=== PATIENT | male | born 1970 | race Caucasian/White ===

== ENCOUNTER 2022-08-26 09:02 | Outpatient (CLI) | payer OTHER, SELFPAY ==
[2022-08-26 18:27] LABS: Alanine Aminotransferase 35 U/L (6-50); Albumin Level 4.1 g/dL (3.5-5.1); Alkaline Phosphatase 48 U/L (38-126); Anion Gap 5 mmol/L (8-16); Aspartate Amino Transferase 35 U/L (17-59); Bilirubin,Total 1.1 mg/dL (0.2-1.3); Blood Urea Nitrogen 11 mg/dL (9-20); Calcium 8.4 mg/dL (8.4-10.2); Carbon Dioxide 29 mmol/L (22-30); Chloride 102 mmol/L (98-107); Cholesterol 175 mg/dL (0-200); Estimated Glomerular Filt Rate > 60; Glucose 83 mg/dL (65-110); HDL Direct 36 mg/dL; Potassium 4.2 mmol/L (3.4-5.0); Sodium 136 mmol/L (137-145); Triglycerides 117 mg/dL (<150)
[2022-08-26 18:38] LABS: LDL Cholesterol Direct 103 mg/dL
[2022-08-26 19:40] LABS: Basophils Absolute Auto 0.1 K/mm3 (0.0-0.1); Basophils Percent Auto 0.9 % (0.2-1.2); Eosinophils Absolute Auto 0.1 K/mm3 (0-0.3); Eosinophils Percent Auto 1.1 % (0-4.4); Hematocrit 49.9 % (42.0-52.0); Hemoglobin 15.1 g/dL (14.0-18.0); Immature Granulocyte Absolute 0.01 K/mm3 (0.00-0.031); Immature Granulocyte Percent A 0.2 % (0-0.5); Immature Platelet Fraction Pct 3.5 % (0.9-11.2); Lymphocytes Absolute Auto 1.75 K/mm3 (0.9-3.2); Lymphocytes Percent Auto 31.1 % (18.3-44.2); Mean Corpuscular HGB Conc 30.3 g/dl (32-36); Mean Corpuscular Hemoglobin 19.5 pg (26-34); Mean Corpuscular Volume 64.5 fl (80-100); Mean Platelet Volume 9.7 fl (7.4-10.4); Monocytes Absolute Auto 0.6 K/mm3 (0.1-0.6); Monocytes Percent Auto 9.9 % (2.6-8.5); Neutrophils Absolute Auto 3.2 K/mm3 (1.3-6.7); Neutrophils Percent Auto 56.8 % (45.5-73.1); Platelet Count Result 230 k/mm3 (150-375); Red Blood Count 7.74 M/mm3 (4.6-6.20); Red Cell Distribution Width 19.8 % (11.5-14.5); White Blood Count 5.6 K/mm3 (4.5-10.0)
[2022-08-26 20:05] LABS: Microcytosis 1+ (NORMAL); Platelet Estimate Adequate (Adequate)
[2022-08-26 20:06] LABS: Ovalocytes 1+ (NORMAL); Schistocytes None Seen (NORMAL); Target Cells 1+ (NORMAL)
== END 2022-08-26 09:03 | disposition home or self-care (01) ==
LOC: ANHGOSHLAB 09:03
PROVIDERS: PCP Family Medicine; Visit Provider Family Medicine
DX: Z13.228 Encounter for screening for other metabolic disorders (principal); Z79.899 Other long term (current) drug therapy; Z13.220 Encounter for screening for lipoid disorders
CPT/HCPCS: 36415; 80053; 80061; 85025; 85055

== ENCOUNTER 2022-09-10 08:00 | Outpatient (CLI) | payer OTHER, SELFPAY ==
[2022-09-10 20:21] LABS: Iron 100 ug/dL (49-181)
[2022-09-10 20:30] LABS: Percent Iron Saturation 29 % (20-50)
== END 2022-09-10 08:01 | disposition home or self-care (01) ==
LOC: ANHGOSHLAB 08:03
PROVIDERS: PCP Family Medicine; Visit Provider Family Medicine
DX: R71.8 Other abnormality of red blood cells (principal)
CPT/HCPCS: 36415; 82728; 83540; 83550

== ENCOUNTER 2023-01-15 02:00 | Day surgery (SDC) | payer BC, SELFPAY ==
[2022-12-31 13:53] VITALS: BMI 31.6
--- NOTE | 2023-01-14 21:03 | PM.HPGS ---
History of Present Illness History of Present Illness Consent: Risks, benefits, and alternatives have been discussed and questions answered. Patient agrees to proceed with procedure. Chief complaint: neoplasm screening Narrative: Jake Bullard is a 52 year old male referred for colon cancer screening Review of Systems Review of Systems: All systems reviewed & are unremarkable except as noted in HPI and below PMFSH Family History Family History Father Hypertension Sibling Hypertension Mother Patient's mother is in good health Other Cerebrovascular accident Diabetes mellitus Social History Social History Smoking status: Never smoker Second hand tobacco smoke exposure: Yes Alcohol intake: current Drinks per week: 2 Alcohol use details: Socially Substance use: never Substance use type: does not use Lack of Transportation: No Lack of Food: Never True Current Housing: I Have Housing Concerned About Future Housing: No Difficulty Paying Gas/Electric Bills: No Difficulty Paying for Meds: No Education: Associate Degree Difficulty w/ Childcare or Family Care: No Meds Home Medications and Allergies Home Medications Medication Instructions Recorded Confirmed Type omeprazole 20 mg capsule,delayed 20 mg PO BID 08/25/22 12/31/22 History release ferrous sulfate 325 mg (65 mg 325 mg PO DAILY #30 tabs 12/07/22 12/31/22 Rx iron) tablet Allergies Allergy/AdvReac Type Severity Reaction Status Date / Time No Known Allergies Allergy Mild Verified 01/15/23 10:53 Exam Const: General: alert Orientation/consciousness: patient oriented x3 Resp: Auscultation: clear to auscultation bilaterally Cardio: Rhythm: regular rhythm GI: GI Palp: Yes Soft to palpation and No Tenderness to palpation present (GI) Neuro: General: patient oriented x3 Assessment and Plan Assessment and plan (1) Colon cancer screening: Code(s): Z12.11 - Encounter for screening for malignant neoplasm of colon Status: Acute Assessment and Plan: Colonoscopy with possible biopsy or polypectomy or cautery or injection of substances.
[2023-01-15 10:54] VITALS: BP 118/77; PULSE 77; RESP 20; TEMP 36.6; O2SAT 99
[2023-01-15] MEDS: LACTATED RINGERS 1,000 ML 150 ML IV CONT (11:05)
--- NOTE | 2023-01-15 11:58 | P.PNAN_ITS ---
Anes - Initial Pre Proc Eval Procedure: Operation Date: 01/15/23 12:30 Proposed Procedures p Screening Colonoscopy - Luis A Cortez MD Date/Time: 01/15/23 11:58 Surgeon: Luis A Cortez MD Pre Op Diagnosis: neoplasm screening Patient Data Age: 52 Gender: M Height: 1.78 m Weight: 93.2 kg Last Vital Signs Temp 98 F 01/15/23 10:54 Pulse 77 01/15/23 10:54 Resp 20 01/15/23 10:54 BP 118/77 01/15/23 10:54 Pulse Ox 99 01/15/23 10:54 O2 Del Method Room Air 01/15/23 10:54 Allergies Allergy/AdvReac Type Severity Reaction Status Date / Time No Known Allergies Allergy Mild Verified 01/15/23 10:53 Home Medications Medication Instructions Recorded Confirmed Type omeprazole 20 mg capsule,delayed 20 mg PO BID 08/25/22 12/31/22 History release ferrous sulfate 325 mg (65 mg 325 mg PO DAILY #30 tabs 12/07/22 12/31/22 Rx iron) tablet Patient hx anesthesia problems: none Family hx anesthesia problems: none Results Review: All pre-operative results and documents have been reviewed as part of the pre- operative evaluation. [facility] Family History Family History Father Hypertension Sibling Hypertension Mother Patient's mother is in good health Other Cerebrovascular accident Diabetes mellitus Social History Social History Smoking status: Never smoker Second hand tobacco smoke exposure: Yes Alcohol intake: current Drinks per week: 2 Alcohol use details: Socially Substance use: never Substance use type: does not use Lack of Transportation: No Lack of Food: Never True Current Housing: I Have Housing Concerned About Future Housing: No Difficulty Paying Gas/Electric Bills: No Difficulty Paying for Meds: No Education: Associate Degree Difficulty w/ Childcare or Family Care: No Anes - Eval Final PreProcedure Day of Procedure 01/15/23 11:58 Patient weight: overweight Heart: regular rate and rhythm Lungs: clear to auscultation Airway: Mallampati scale class II Neurological: alert and oriented Last oral intake: >/= 8 hours ASA classification: III Emergent: no Anesthetic plan: proceed Anesthesia type and monitoring: general GIVS and standard monitoring Results Review: All pre-operative results and documents have been reviewed as part of the pre- operative evaluation. Informed Consent: The patient's anesthetic plan and its attendant risks and benefits were discussed with the patient/family/POA. Questions were solicited and answers provided to the satisfaction of the patient/family/POA.
[2023-01-15 12:27] VITALS: BP 109/71; PULSE 67; RESP 20; O2SAT 100
[2023-01-15 12:37] VITALS: BP 107/72; PULSE 64; RESP 24; O2SAT 100
[2023-01-15 12:47] VITALS: BP 118/66; PULSE 53; RESP 23; O2SAT 99
== END 2023-01-15 12:57 | disposition home or self-care (01) ==
PROVIDERS: PCP Family Medicine; Visit Provider Internal Medicine Gastroenterology
PROC: 0DJD8ZZ Inspection of Lower Intestinal Tract, Via Natural or Artificial Opening Endoscopic (ICD-10-PCS; CPT 45378; principal; 2023-01-15 12:30)
DX: Z12.11 Encounter for screening for malignant neoplasm of colon (principal); K57.30 Diverticulosis of large intestine without perforation or abscess without bleeding
CPT/HCPCS: 45378; J2704; J7120

== ENCOUNTER → 2023-07-16 15:16 | Outpatient (CLI) | payer BC, SELFPAY ==
--- NOTE | ~2023-07-16 | XR_ITS ---
EXAMINATION: XR chest 2V DATE: 07/16/2023 15:31 INDICATION: Personal history of malignant neoplasm of larynx. TECHNIQUE: Frontal and lateral views of the chest were obtained. COMPARISON: Chest single view 09/01/2011 FINDINGS: There is no pneumonia, pleural effusion, or pneumothorax. The heart size is normal. There a re old healed left rib fractures. IMPRESSION: 1. No acute cardiopulmonary disease. Reviewed, dictated and finalized at location A. TICS MECHANIC
== END ==
PROVIDERS: PCP Otolaryngology; Visit Provider Otolaryngology
DX: R49.0 Dysphonia (principal); Z85.21 Personal history of malignant neoplasm of larynx
CPT/HCPCS: 71046

== ENCOUNTER 2023-08-24 09:12 | Outpatient (CLI) | payer BC, SELFPAY ==
[2023-08-24 19:24] LABS: Alanine Aminotransferase 44 U/L (6-50); Albumin Level 4.4 g/dL (3.5-5.1); Alkaline Phosphatase 55 U/L (38-126); Anion Gap 11 mmol/L (8-16); Aspartate Amino Transferase 57 U/L (17-59); Blood Urea Nitrogen 17 mg/dL (9-20); Calcium 9.3 mg/dL (8.4-10.2); Carbon Dioxide 25 mmol/L (22-30); Chloride 105 mmol/L (98-107); Cholesterol 205 mg/dL (0-200); Estimated Glomerular Filt Rate > 60; Glucose 73 mg/dL (65-110); HDL Direct 48 mg/dL; Potassium 4.3 mmol/L (3.4-5.0); Sodium 141 mmol/L (137-145); Triglycerides 126 mg/dL (<150)
[2023-08-24 19:33] LABS: Basophils Absolute Auto 0.1 K/mm3 (0.0-0.1); Eosinophils Absolute Auto 0.1 K/mm3 (0-0.3); Eosinophils Percent Auto 1.5 % (0-4.4); Hematocrit 44.1 % (42.0-52.0); Immature Granulocyte Absolute 0.01 K/mm3 (0.00-0.031); Immature Granulocyte Percent A 0.2 % (0-0.5); Lymphocytes Absolute Auto 1.72 K/mm3 (0.9-3.2); Lymphocytes Percent Auto 29.5 % (18.3-44.2); Mean Corpuscular HGB Conc 29.5 g/dl (32-36); Mean Corpuscular Hemoglobin 19.4 pg (26-34); Mean Corpuscular Volume 65.8 fl (80-100); Mean Platelet Volume 9.7 fl (7.4-10.4); Monocytes Absolute Auto 0.5 K/mm3 (0.1-0.6); Neutrophils Absolute Auto 3.5 K/mm3 (1.3-6.7); Neutrophils Percent Auto 59.8 % (45.5-73.1); Platelet Count Result 237 k/mm3 (150-375); White Blood Count 5.8 K/mm3 (4.5-10.0)
[2023-08-24 19:47] LABS: LDL Cholesterol Direct 106 mg/dL
[2023-08-24 19:52] LABS: Prostate Specific Antigen 0.9 ng/mL (< OR = 4.0)
[2023-08-24 20:14] LABS: Hypochromasia 1+ (NORMAL); Microcytosis 1+ (NORMAL); Ovalocytes 1+ (NORMAL); Platelet Estimate Adequate (Adequate); Schistocytes None Seen (NORMAL); Target Cells 1+ (NORMAL)
== END 2023-08-24 09:13 | disposition home or self-care (01) ==
LOC: ANHGOSHLAB 09:13
PROVIDERS: PCP Family Medicine; Visit Provider Family Medicine
DX: Z12.5 Encounter for screening for malignant neoplasm of prostate (principal); R53.83 Other fatigue; Z13.220 Encounter for screening for lipoid disorders; Z13.228 Encounter for screening for other metabolic disorders
CPT/HCPCS: 36415; 80053; 80061; 84153; 85025; G0103

== ENCOUNTER 2024-07-26 09:49 | Outpatient (CLI) | payer BC, SELFPAY ==
--- NOTE | ~2024-07-26 | XR_ITS ---
EXAMINATION: XR chest 2V 07/26/2024 09:58 INDICATION: Dysphonia PROCEDURE: 2 view chest COMPARISON: 07/16/2023 FINDINGS: The lungs are clear. The cardiomediastinal silhouette is within normal limits. There are no pleural effusions. There is no pneumothorax suspected. IMPRESSION: 1: NO ACUTE CARDIOPULMONARY DISEASE. Reviewed, dictated and finalized at location B. S MACHINE OPERATOR
== END 2024-07-26 09:50 | disposition home or self-care (01) ==
LOC: MICIMG 09:50
PROVIDERS: PCP Otolaryngology; Visit Provider Otolaryngology
DX: R49.0 Dysphonia (principal); Z85.21 Personal history of malignant neoplasm of larynx
CPT/HCPCS: 71046

== ENCOUNTER 2025-07-23 12:13 | Outpatient (CLI) | payer BC, SELFPAY ==
--- NOTE | ~2025-07-23 | XR_ITS ---
EXAM/PROCEDURE: XR chest 2V HISTORY: Personal history of malignant neoplasm of larynx COMPARISON: None available. TECHNIQUE: Two view(s) of the chest. FINDINGS: LUNGS: Clear of acute processes. There is a density seen on the lateral view only at about the level of the diaphragmatic domes. This overlies the spine. It may reflect a confluence of structures. Obtain chest CT for further evaluation. PLEURAL SPACES: Clear. No evidence of fluid or pneumothorax. HEART/ MEDIASTINUM: Normal in appearance. SOFT TISSUES: No significant findings. BONES: No acute osseous abnormality. IMPRESSION: No acute findings. There is a density seen on the lateral view only at about the level of the diaphragmatic domes. This overlies the spine. It may reflect a confluence of structures. Obtain chest CT for further evaluation. Reviewed, dictated and finalized at location B. SPHERIC PHYSICS PROFESSOR IMPRESSION: No acute findings. There is a density seen on the lateral view only at about th e level of the diaphragmatic domes. This overlies the spine. It may reflect a c onfluence of structures. Obtain chest CT for further evaluation.
== END 2025-07-23 12:14 | disposition home or self-care (01) ==
PROVIDERS: PCP Emergency Medicine; Visit Provider Otolaryngology
DX: R49.0 Dysphonia (principal); Z85.21 Personal history of malignant neoplasm of larynx
CPT/HCPCS: 71046

== ENCOUNTER 2025-08-02 14:17 | Outpatient (CLI) | payer BC, SELFPAY ==
--- NOTE | ~2025-08-02 | CT_ITS ---
CT diagnostic chest wo/w con HISTORY: hx of mal misha of larynx . COMPARISON: None. TECHNIQUE: Axial 5 mm images of the chest were obtained without and with infusion of 100 Isovue 300. FINDINGS: The examination demonstrates no pulmonary nodules, infiltrates and/or effusions. No pathologically enlarged hilar or mediastinal lymphadenopathy is seen. Cardiac size and mediastinal configuration are normal in appearance. The pulmonary artery and thoracic aorta are normal in caliber and patency. Osseous structures are intact. Multiple gallstones are noted. IMPRESSION: No acute cardiopulmonary process. No pathologic enhancement is noted. No pathologically enlarged mediastinal lymphadenopathy is noted. Incidentally noted is cholelithiasis. All CT scans at this facility are performed using low dose modulation techniques as appropriate to perform exam including the following: automated exposure control; use of iterative reconstruction technique; adjustment of the mA and/or kV according to patient size (this includes techniques or standardized protocols for targeted exams where dose is matched to indication/reason for exam). Reviewed, dictated and finalized at location S. H HEALER IMPRESSION: No acute cardiopulmonary process. No pathologic enhancement is noted. No pathologically enlarged mediastinal lymphadenopathy is noted. Incidentally noted is cholelithiasis. All CT scans at this facility are performed using low dose modulation techniqu es as appropriate to perform exam including the following: automated exposure c ontrol; use of iterative reconstruction technique; adjustment of the mA and/or kV according to patient size (this includes techniques or standardized protocol s for targeted exams where dose is matched to indication/reason for exam).
== END 2025-08-02 14:18 | disposition home or self-care (01) ==
LOC: MICIMG 14:18
PROVIDERS: PCP Emergency Medicine; Visit Provider Otolaryngology
DX: K80.20 Calculus of gallbladder without cholecystitis without obstruction (principal); Z85.21 Personal history of malignant neoplasm of larynx
CPT/HCPCS: 71270; Q9967